=== PATIENT | female | born 1995 | race Two or more races ===

== ENCOUNTER 2020-01-30 10:51 | Emergency (ER) | payer MEDICAID, OTHER ==
[~2020-01-30] VITALS: Ht 162.6 cm; Wt 43.1 kg
[2020-01-30 14:38] VITALS: BP 97/65
== END 2020-01-30 15:17 | disposition home or self-care (01) ==
LOC: ER 10:51
DX: J20.8 Acute bronchitis due to other specified organisms (principal); Z20.828 Contact with and (suspected) exposure to other viral communicable diseases
CPT/HCPCS: 36415; 71045; 81025; 87426